=== PATIENT | female | born 1980 | race African-American/Black ===

== ENCOUNTER 2019-04-15 12:35 | Inpatient (IN) | payer SELFPAY ==
[2019-04-15] VITALS (7 sets, daily range): BP systolic 132–231; BP diastolic 95–143
[~2019-04-15] VITALS: Ht 167.6 cm; Wt 138.8 kg
--- NOTE | 2019-04-15 14:36 | PHYS DOC ---
Past Medical History Past Medical History: Hypertension Additional Past Medical Histor: ADELAIDA (ANUJA CASON APRN) Past Surgical History: No Surgical History (ANUJA CASON APRN) Alcohol Use: None Drug Use: None (ANUJA CASON APRN) Attending Signature I have participated in the care of this patient and I have reviewed and agree with all pertinent clinical information above including history, exam, and recommendations. (MAYANK BOWMAN MD) Adult General Chief Complaint Chief Complaint: HEADACHE HPI HPI Patient is a 39 year old female who presents with headache and has not taken any of her blood pressure medications last 8 months. Patient states she usually gets her medications from soap help. Patient states her vision slightly blurred and slightly spotty. Patient states she is short of air but no chest pain. Patient has 1+ lower extremity edema and states that it has increased. Patient's blood pressure upon arrival to 265/141. 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 Patient states medications that she usually takes lisinopril, clonidine, amlodipine, Doxacin, fluoxetine. Rates her headache in 9 out of 10. (ANUJA CASON APRN) Review of Systems Review of Systems Eyes: Denies change in visual acuity, redness, or eye pain. Blurred vision, spotty [] Neurologic: headache, denies focal weakness or sensory changes [] All other systems were reviewed and found to be within normal limits, except as documented in this note. (ANUJA CASON APRN) Current Medications Current Medications Current Medications Medications (Trade) Dose Ordered Sig/Tristan Start Time Stop Time Status Last Admin Dose Admin Clonidine HCl (Catapres) 0.2 mg 1X ONCE 04/15/19 16:00 04/15/19 16:01 DC 04/15/19 15:54 0.2 MG Fentanyl Citrate (Fentanyl 2ml Vial) 50 mcg 1X ONCE 04/15/19 14:45 04/15/19 15:03 DC Furosemide (Lasix) 40 mg DAILY 04/15/19 16:18 04/16/19 11:23 DC 04/16/19 08:55 40 MG Hydralazine HCl (Apresoline Inj) 10 mg 1X ONCE 04/15/19 15:00 04/15/19 15:03 DC 04/15/19 15:00 10 MG (MAYANK BOWMAN MD) Allergies Allergies Allergies Coded Allergies Type Severity Reaction Last Updated Verified No Known Drug Allergies 04/15/19 No (MAYANK BOWMAN MD) Physical Exam Physical Exam Constitutional: Well developed, well nourished, no acute distress, non-toxic appearance. [] HENT: Normocephalic, atraumatic, bilateral external ears normal, oropharynx moist, no oral exudates, nose normal. [] Eyes: PERRLA, EOMI, conjunctiva normal, no discharge. [] Neck: Normal range of motion, no tenderness, supple, no stridor. [] Cardiovascular:Heart rate regular rhythm, no murmur [] Lungs & Thorax: Bilateral breath sounds clear to auscultation [] Skin: Warm, dry, no erythema, no rash. [] Extremities: No tenderness, no cyanosis, no clubbing, ROM intact, 1+ lower extremity edema. [] Neurologic: Alert and oriented X 3, normal motor function, normal sensory function, no focal deficits noted. [] Psychologic: Affect normal, judgement normal, mood normal. [] (ANUJA CASON APRN) Current Patient Data Vital Signs Vital Signs Date Time Temp Pulse Resp B/P (MAP) Pulse Ox O2 Delivery O2 Flow Rate FiO2 04/15/19 15:54 107 257/120 04/15/19 15:30 97 04/15/19 13:45 97.9 20 Room Air 97.9 (MAYANK BOWMAN MD) Lab Values Laboratory Tests Test 04/15/19 14:50 04/15/19 15:40 04/15/19 15:42 White Blood Count 13.5 x10^3/uL (4.0-11.0) H Red Blood Count 5.55 x10^6/uL (3.50-5.40) H Hemoglobin 13.9 g/dL (12.0-15.5) Hematocrit 42.2 % (36.0-47.0) Mean Corpuscular Volume 76 fL (79-100) L Mean Corpuscular Hemoglobin 25 pg (25-35) Mean Corpuscular Hemoglobin Concent 33 g/dL (31-37) Red Cell Distribution Width 18.0 % (11.5-14.5) H Platelet Count 363 x10^3/uL (140-400) Neutrophils (%) (Auto) 65 % (31-73) Lymphocytes (%) (Auto) 22 % (24-48) L Monocytes (%) (Auto) 6 % (0-9) Eosinophils (%) (Auto) 7 % (0-3) H Basophils (%) (Auto) 1 % (0-3) Neutrophils # (Auto) 8.7 x10^3/uL (1.8-7.7) H Lymphocytes # (Auto) 2.9 x10^3/uL (1.0-4.8) Monocytes # (Auto) 0.8 x10^3/uL (0.0-1.1) Eosinophils # (Auto) 0.9 x10^3/uL (0.0-0.7) H Basophils # (Auto) 0.2 x10^3/uL (0.0-0.2) Sodium Level 143 mmol/L (136-145) Potassium Level 3.9 mmol/L (3.5-5.1) Chloride Level 104 mmol/L (98-107) Carbon Dioxide Level 26 mmol/L (21-32) Anion Gap 13 (6-14) Blood Urea Nitrogen 23 mg/dL (7-20) H Creatinine 1.5 mg/dL (0.6-1.0) H Estimated GFR (Cockcroft-Gault) 46.5 BUN/Creatinine Ratio 15 (6-20) Glucose Level 81 mg/dL (70-99) Calcium Level 9.8 mg/dL (8.5-10.1) Total Bilirubin 0.5 mg/dL (0.2-1.0) Aspartate Amino Transferase (AST) 29 U/L (15-37) Alanine Aminotransferase (ALT) 49 U/L (14-59) Alkaline Phosphatase 129 U/L (46-116) H Troponin I Quantitative 0.076 ng/mL (0.000-0.055) JS-Hcr-S-Type Natriuretic Peptide 4219 pg/mL (0-124) H Total Protein 8.2 g/dL (6.4-8.2) Albumin 4.1 g/dL (3.4-5.0) Albumin/Globulin Ratio 1.0 (1.0-1.7) Urine Collection Type Unknown Urine Color Yellow Urine Clarity Clear Urine pH 5.0 Urine Specific [place] 1.015 Urine Protein 30 mg/dL (NEG-TRACE) Urine Glucose (UA) Negative mg/dL (NEG) Urine Ketones (Stick) Negative mg/dL (NEG) Urine Blood Negative (NEG) Urine Nitrite Negative (NEG) Urine Bilirubin Negative (NEG) Urine Urobilinogen Dipstick 0.2 mg/dL (0.2 mg/dL) Urine Leukocyte Esterase Negative (NEG) Urine RBC 0 /HPF (0-2) Urine WBC Occ /HPF (0-4) Urine Squamous Epithelial Cells Few /LPF Urine Bacteria Moderate /HPF (0-FEW) Urine Opiates Screen Neg (NEG) Urine Methadone Screen Neg (NEG) Urine Barbiturates Neg (NEG) Urine Phencyclidine Screen Neg (NEG) Urine Amphetamine/Methamphetamine Neg (NEG) Urine Benzodiazepines Screen Neg (NEG) Urine Cocaine Screen Neg (NEG) Urine Cannabinoids Screen Pos (NEG) Urine Ethyl Alcohol Neg (NEG) POC Urine HCG, Qualitative Hcg negative (Negative) Laboratory Tests 04/15/19 14:50 Laboratory Tests 04/15/19 14:50 (MAYANK BOWMAN MD) Lab Values Laboratory Tests Test 04/15/19 14:50 04/15/19 15:40 04/15/19 15:42 White Blood Count 13.5 x10^3/uL (4.0-11.0) H Red Blood Count 5.55 x10^6/uL (3.50-5.40) H Hemoglobin 13.9 g/dL (12.0-15.5) Hematocrit 42.2 % (36.0-47.0) Mean Corpuscular Volume 76 fL (79-100) L Mean Corpuscular Hemoglobin 25 pg (25-35) Mean Corpuscular Hemoglobin Concent 33 g/dL (31-37) Red Cell Distribution Width 18.0 % (11.5-14.5) H Platelet Count 363 x10^3/uL (140-400) Neutrophils (%) (Auto) 65 % (31-73) Lymphocytes (%) (Auto) 22 % (24-48) L Monocytes (%) (Auto) 6 % (0-9) Eosinophils (%) (Auto) 7 % (0-3) H Basophils (%) (Auto) 1 % (0-3) Neutrophils # (Auto) 8.7 x10^3/uL (1.8-7.7) H Lymphocytes # (Auto) 2.9 x10^3/uL (1.0-4.8) Monocytes # (Auto) 0.8 x10^3/uL (0.0-1.1) Eosinophils # (Auto) 0.9 x10^3/uL (0.0-0.7) H Basophils # (Auto) 0.2 x10^3/uL (0.0-0.2) Sodium Level 143 mmol/L (136-145) Potassium Level 3.9 mmol/L (3.5-5.1) Chloride Level 104 mmol/L (98-107) Carbon Dioxide Level 26 mmol/L (21-32) Anion Gap 13 (6-14) Blood Urea Nitrogen 23 mg/dL (7-20) H Creatinine 1.5 mg/dL (0.6-1.0) H Estimated GFR (Cockcroft-Gault) 46.5 BUN/Creatinine Ratio 15 (6-20) Glucose Level 81 mg/dL (70-99) Calcium Level 9.8 mg/dL (8.5-10.1) Total Bilirubin 0.5 mg/dL (0.2-1.0) Aspartate Amino Transferase (AST) 29 U/L (15-37) Alanine Aminotransferase (ALT) 49 U/L (14-59) Alkaline Phosphatase 129 U/L (46-116) H Troponin I Quantitative 0.076 ng/mL (0.000-0.055) VC-Rsv-D-Type Natriuretic Peptide 4219 pg/mL (0-124) H Total Protein 8.2 g/dL (6.4-8.2) Albumin 4.1 g/dL (3.4-5.0) Albumin/Globulin Ratio 1.0 (1.0-1.7) Urine Collection Type Unknown Urine Color Yellow Urine Clarity Clear Urine pH 5.0 Urine Specific [place] 1.015 Urine Protein 30 mg/dL (NEG-TRACE) Urine Glucose (UA) Negative mg/dL (NEG) Urine Ketones (Stick) Negative mg/dL (NEG) Urine Blood Negative (NEG) Urine Nitrite Negative (NEG) Urine Bilirubin Negative (NEG) Urine Urobilinogen Dipstick 0.2 mg/dL (0.2 mg/dL) Urine Leukocyte Esterase Negative (NEG) Urine RBC 0 /HPF (0-2) Urine WBC Occ /HPF (0-4) Urine Squamous Epithelial Cells Few /LPF Urine Bacteria Moderate /HPF (0-FEW) Urine Opiates Screen Neg (NEG) Urine Methadone Screen Neg (NEG) Urine Barbiturates Neg (NEG) Urine Phencyclidine Screen Neg (NEG) Urine Amphetamine/Methamphetamine Neg (NEG) Urine Benzodiazepines Screen Neg (NEG) Urine Cocaine Screen Neg (NEG) Urine Cannabinoids Screen Pos (NEG) Urine Ethyl Alcohol Neg (NEG) POC Urine HCG, Qualitative Hcg negative (Negative) Laboratory Tests 04/15/19 14:50 Laboratory Tests 04/15/19 14:50 (ANUJA CASON APRN) EKG EKG Sinus Tachycardia and no STEMI[] Interpretation Time: [address] Bowman (ANUJA CASON APRN) Radiology/Procedures Radiology/Procedures [] (ANUJA CASON APRN) Impressions: [facility] [address] [place] [address] IMAGING REPORT Signed PATIENT: FREDDIE THACKER ACCOUNT: [id number] : 1980 LOCATION: ER AGE: 39 SEX: F EXAM STATUS: REG ER ORD. PHYSICIAN: ANUJA CASON APRN REASON: headache PROCEDURE: CT HEAD WO CONTRAST Examination: CT HEAD WO CONTRAST History: Headache Comparison/Correlation: 01/12/2013 CT head without contrast Findings: Axial images of the head were obtained without contrast. Ventricles are normal size. No intracranial hemorrhage, midline shift, or mass effect. Mild mucosal thickening of the ethmoid air cells is noted. Bates-white matter differentiation is adequate. Bony structures are unremarkable. Impression: No suspicious process. PQRS Compliance Statement: One or more of the following individualized dose reduction techniques were utilized for this examination: 1. Automated exposure control 2. Adjustment of the mA and/or kV according to patient size 3. Use of iterative reconstruction technique Electronically signed by: Carlos Sullivan MD (04/15/2019 4:18 PM) [facility] DICTATED and SIGNED BY: CARLOS SULLIVAN MD DATE: 04/15/19 1619 [facility] [address] [place] [id number] IMAGING REPORT Signed PATIENT: FREDDIE THACKER ACCOUNT: [id number] : 1980 LOCATION: ER AGE: 39 SEX: F EXAM STATUS: REG ER ORD. PHYSICIAN: ANUJA CASON APRN REASON: soa PROCEDURE: CHEST PA & LATERAL CHEST PA LATERAL History: Shortness of breath Comparison: None. Findings: The cardiomediastinal silhouette is normal. Pulmonary vasculature is normal. The lungs are clear. No pleural effusion or pneumothorax is seen. There is no acute bone abnormality. IMPRESSION: No acute cardiopulmonary process. Electronically signed by: Carlos Sullivan MD (04/15/2019 4:21 PM) [facility] DICTATED and SIGNED BY: CARLOS SULLIVAN MD DATE: 04/15/19 1621 (ANUJA CASON APRN) Course & Med Decision Making Course & Med Decision Making 1+ were extremity edema. Alert and oriented. Speaks in full clear sentences. Ambulatory with a steady gait. Denies dizziness, abdominal pain, nausea, vomiting, diarrhea, fever, chest pain, numbness or tingling. Lungs are clear to auscultation all lobes. Troponin elevated at 0.076. After 10mg was given of hydralazine, recheck blood pressure is 257/120 and heart rate 107. Patient is now given Clonidine 0.2mg. Dr Bowman is aware of this patient. Dr Bowman read the chest xray as mild pulmonary edema. BNP is 4219, BUN is 23 creatinine is 1.5. I've spoken to Dr. Fagan patient is admitted for hypertension and elevated troponin. I'll consult cardiology. Patient Is given Lasix 40 mg IV. Patient blood pressure remains elevated in the 220's. Dr Bowman aware. Labetalol 20mg IV is given. (ANUJA CASON APRN) Dragon Disclaimer Dragon Disclaimer This electronic medical record was generated, in whole or in part, using a voice recognition dictation system. (ANUJA CASON APRN) Departure Departure Impression: Primary Impression: Hypertension Additional Impression: Elevated troponin Disposition: ADMITTED INPATIENT Admitting Physician: PHILIP (ANUJA CASON APRN) Condition: STABLE Referrals: NO PCP (PCP) Problem Qualifiers Primary Impression: Hypertension Hypertension type: unspecified Qualified Codes: I10 - Essential (primary) hypertension ANUJA CASON APRN Apr 15, 2019 14:36 MAYANK BOWMAN MD Apr 17, 2019 18:18
[2019-04-15] MEDS ORDERED: fentaNYL PF VIAL 100 MCG/2 ML VIAL IVP ONE (14:45)
[2019-04-15] MEDS ORDERED: hydrALAZINE 20 MG/ML VIAL. IVP ONE (15:00)
[2019-04-15 15:01] LABS: BASO # 0.2 x10^3/uL (0.0-0.2); BASO % 1 % (0-3); EOS # 0.9 x10^3/uL (0.0-0.7); EOS % 7 % (0-3); HEMATOCRIT 42.2 % (36.0-47.0); HEMOGLOBIN 13.9 g/dL (12.0-15.5); LYMPH # 2.9 x10^3/uL (1.0-4.8); LYMPH % 22 % (24-48); MEAN CORPUSCULAR HEMOGLOBIN 25 pg (25-35); MEAN CORPUSCULAR HGB CONC 33 g/dL (31-37); MEAN CORPUSCULAR VOLUME 76 fL (79-100); MONO # 0.8 x10^3/uL (0.0-1.1); MONO % 6 % (0-9); NEUT # 8.7 x10^3/uL (1.8-7.7); NEUT % 65 % (31-73); PLATELET COUNT 363 x10^3/uL (140-400); RED BLOOD COUNT 5.55 x10^6/uL (3.50-5.40); WHITE BLOOD COUNT 13.5 x10^3/uL (4.0-11.0)
[2019-04-15 15:13] LABS: CALCIUM 9.8 mg/dL (8.5-10.1); CREATININE 1.5 mg/dL (0.6-1.0); GFR 46.5; POTASSIUM 3.9 mmol/L (3.5-5.1)
[2019-04-15 15:19] LABS: ALBUMIN 4.1 g/dL (3.4-5.0); TOTAL BILIRUBIN 0.5 mg/dL (0.2-1.0); TOTAL PROTEIN 8.2 g/dL (6.4-8.2)
[2019-04-15 15:50] LABS: BILIRUBIN,URINE NEGATIVE (NEG); CLARITY,URINE CLEAR; COLOR,URINE YELLOW; NITRITE,URINE NEGATIVE (NEG); PROTEIN,URINE 30 mg/dL (NEG-TRACE); UROBILINOGEN,URINE 0.2 mg/dL (0.2 mg/dL)
[2019-04-15 15:55] LABS: BACTERIA,URINE MODERATE /HPF (0-FEW); BARBITURATES NEG (NEG); BENZODIAZEPINES NEG (NEG); CANNABINOIDS POS (NEG); COCAINE NEG (NEG); METHADONE NEG (NEG); OPIATES NEG (NEG); PHENCYCLIDINE NEG (NEG); RBC,URINE 0 /HPF (0-2); SQUAMOUS EPITHELIAL CELL,UR FEW /LPF
[2019-04-15 15:56] LABS: WBC,URINE OCC /HPF (0-4)
[2019-04-15] MEDS ORDERED: cloNIDine HCL 0.1 MG TABLET PO ONE (16:00)
[2019-04-15 16:02] LABS: AMPHETAMINE/METHAMPHETAMINE NEG (NEG)
[2019-04-15] MEDS ORDERED: fentaNYL PF VIAL 100 MCG/2 ML VIAL IV PRN (16:30)
[2019-04-15] MEDS ORDERED: ACETAMINOPHEN 325 MG TABLET. PO PRN (16:30)
[2019-04-15] MEDS ORDERED: ONDANSETRON PF 4 MG/2 ML VIAL. IV PRN (16:30)
--- NOTE | 2019-04-15 16:42 | RAD ---
CHEST PA LATERAL History: Shortness of breath Comparison: None. Findings: The cardiomediastinal silhouette is normal. Pulmonary vasculature is normal. The lungs are clear. No pleural effusion or pneumothorax is seen. There is no acute bone abnormality. IMPRESSION: No acute cardiopulmonary process. Electronically signed by: Carlos Pendleton MD (04/15/2019 4:21 PM) [facility]
--- NOTE | 2019-04-15 16:42 | RAD ---
Examination: CT HEAD WO CONTRAST History: Headache Comparison/Correlation: 01/12/2013 CT head without contrast Findings: Axial images of the head were obtained without contrast. Ventricles are normal size. No intracranial hemorrhage, midline shift, or mass effect. Mild mucosal thickening of the ethmoid air cells is noted. Bates-white matter differentiation is adequate. Bony structures are unremarkable. Impression: No suspicious process. PQRS Compliance Statement: One or more of the following individualized dose reduction techniques were utilized for this examination: 1. Automated exposure control 2. Adjustment of the mA and/or kV according to patient size 3. Use of iterative reconstruction technique Electronically signed by: Carlos Pendleton MD (04/15/2019 4:18 PM) [facility]
[2019-04-15] MEDS ORDERED: LABETALOL 20 MG/4 ML DISP.SYRIN. IVP ONE (17:30)
[2019-04-15] MEDS: FUROSEMIDE 40 MG/4 ML VIAL. IVP SCH (17:45)
--- NOTE | 2019-04-15 20:04 | HP ---
ADMIT DATE: 04/15/2019 CHIEF COMPLAINT: Headache. HISTORY OF PRESENT ILLNESS: The patient is a pleasant middle-aged female, who presented with a headache. She has not been taking her blood pressure meds for 8 months. Now, her pressure is 240/100. Chest x-ray is showing vascular congestion. Her troponin is bumped to 0.076. Her creatinine has bumped to 1.5. BNP is high at 4219. I discussed the case with ER physician. The patient is going to the ICU on a Cardene drip. PAST MEDICAL HISTORY: Noncompliance, hypertension and Cerda's palsy. ALLERGIES: None. FAMILY HISTORY: Hypertension. SOCIAL HISTORY: She does not drink, smoke or take drugs. MEDICATIONS: Reviewed, please refer to the MRAD. REVIEW OF SYSTEMS: GENERAL: No history of weight change, weakness or fevers. SKIN: No bruising, hair changes or rashes. EYES: No blurred, double or loss of vision. NOSE AND THROAT: No history of nosebleeds, hoarseness or sore throat. HEART: No history of palpitations, chest pain or shortness of breath on exertion. LUNGS: Denies cough, hemoptysis, wheezing or shortness of breath. GASTROINTESTINAL: Denies changes in appetite, nausea, vomiting, diarrhea or constipation. GENITOURINARY: No history of frequency, urgency, hesitancy or nocturia. NEUROLOGIC: Denies history of numbness, tingling, tremor or weakness. She complains of headache. PSYCHIATRIC: No history of panic, anxiety or depression. ENDOCRINE: No history of heat or cold intolerance, polyuria or polydipsia. EXTREMITIES: Denies muscle weakness, joint pain, pain on walking or stiffness. PHYSICAL EXAMINATION: VITALS: Within normal limits and are stable. Blood pressure 240/100. GENERAL: No apparent distress. Alert and oriented. HEENT: Head is normocephalic, atraumatic, pupils were equally round and reactive to light and accommodation. NECK: Supple, no JVD, no thyromegaly was noted. LUNGS: Clear to auscultation in all lung david without rhonchi or wheezing. HEART: RRR, S1, S2 present. Peripheral pulses intact, no obvious murmurs were noted. ABDOMEN: Soft, nontender. Positive bowel sounds no organomegaly, normal bowel sounds. EXTREMITIES: Without any cyanosis, clubbing, or edema. Pedal pulses intact, Homans sign is negative. NEUROLOGIC: Normal speech, normal tone. A & O x3, moves all extremities, no obvious focal deficits. PSYCHIATRIC: Normal affect, normal mood. Stable. SKIN: No ulcerations or rashes, good skin turgor, no jaundice. VASCULAR: Good capillary refill, neurovascular bundle appears to be intact. LABORATORY DATA: White count 13. Creatinine is 1.5. BNP 4219. ASSESSMENT AND PLAN: Hypertensive emergency with acute on chronic systolic and diastolic heart failure, elevated troponin and acute renal failure. The patient is being admitted. We will give her a Cardene drip. Consult Cardiology. Intensive Care Unit monitoring. Deep venous thrombosis prophylaxis. Home meds. PROGNOSIS: Guarded. CAROLE FONTANA DO DR: MODESTO/keaton JOB#: [id number] / [id number]
[2019-04-15] MEDS ORDERED: LISI-130 PO (20:41)
[2019-04-15] MEDS ORDERED: AMLO10TA8 PO (20:41)
[2019-04-15] MEDS ORDERED: CLON0.3T PO (20:41)
[2019-04-15] MEDS ORDERED: FLUO40CA2 PO (20:41)
[2019-04-15] MEDS ORDERED: DOXA2TAB2 PO (20:41)
--- NOTE | 2019-04-15 21:00 | NUR ---
THIS PATIENT IS BEING TRANSFERRED TO ICU ROOM 104 FROM THE ED. UPON ARRIVAL PATIENT TO ICU PATIENT ARRIVED VIA WHEELCHAIR. NO FLUIDS INFUSING, BUT CARDENE LEFT AT BEDSIDE. AWAKE AND ANSWERS QUESTIONS APPROPRIATELY. HEADACHE BUT DENIES CHEST PAIN OR SOA. WILL CONTINUE TO MONITOR.
[2019-04-16] VITALS (16 sets, daily range): BP systolic 119–173; BP diastolic 62–105
[2019-04-16] MEDS: LISINOPRIL 20 MG TABLET PO SCH ×3 (00:12→21:23)
[2019-04-16] MEDS: amLODIPine BESYLATE 10 MG TABLET PO SCH ×2 (00:13→21:22)
--- NOTE | 2019-04-16 05:46 | EKG ---
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
--- NOTE | 2019-04-16 05:52 | EKG ---
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
--- NOTE | 2019-04-16 07:43 | EKG ---
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
[2019-04-16] MEDS: DOXAZOSIN MESYLATE 1 MG TABLET. PO SCH (08:53)
[2019-04-16] MEDS: cloNIDine HCL 0.3 MG TABLET PO SCH ×4 (08:53→21:23)
[2019-04-16] MEDS: FLUoxetine HCL 20 MG CAPSULE PO SCH (08:54)
[2019-04-16] MEDS: FUROSEMIDE 40 MG/4 ML VIAL. IVP SCH (08:55)
[2019-04-16 10:04] LABS: BASO # 0.1 x10^3/uL (0.0-0.2); BASO % 1 % (0-3); EOS # 0.7 x10^3/uL (0.0-0.7); EOS % 6 % (0-3); HEMATOCRIT 38.1 % (36.0-47.0); HEMOGLOBIN 12.5 g/dL (12.0-15.5); LYMPH # 2.4 x10^3/uL (1.0-4.8); LYMPH % 22 % (24-48); MEAN CORPUSCULAR HEMOGLOBIN 25 pg (25-35); MEAN CORPUSCULAR HGB CONC 33 g/dL (31-37); MEAN CORPUSCULAR VOLUME 76 fL (79-100); MONO # 0.7 x10^3/uL (0.0-1.1); MONO % 6 % (0-9); NEUT # 7.4 x10^3/uL (1.8-7.7); NEUT % 66 % (31-73); PLATELET COUNT 342 x10^3/uL (140-400); RED BLOOD COUNT 5.01 x10^6/uL (3.50-5.40); RED CELL DISTRIBUTION WIDTH 17.4 % (11.5-14.5); WHITE BLOOD COUNT 11.3 x10^3/uL (4.0-11.0)
--- NOTE | 2019-04-16 10:15 | NUR ---
SS following for discharge planning. SS reviewed pt chart. Pt is self pay pt. [facility] following for self pay status. Pt is from home and is currently on room air. SS will continue to follow for discharge planning.
--- NOTE | 2019-04-16 10:56 | PDOC2 ---
SARIAHARLEEN SAHA GABRIELLA 04/16/19 1056: CARDIAC CONSULT DATE OF CONSULT Date of Consult DATE: 04/16/19 TIME: 10:52 REASON FOR CONSULT Reason for Consult: Hypertension REFERRING PHYSICIAN Referring Physician: Karin Acosta APRN SOURCE Source: Chart review, Patient HISTORY OF PRESENT ILLNESS HISTORY OF PRESENT ILLNESS This is a 39 yo female who presented secondary to headache and blurred vision. Headache has been present for the last 2 weeks. Has has some mild nausea, but no vomiting. Also noted with ESPINAL. No chest pain, dizziness, diaphoresis, or LE edema. Has notice some blurred vision for the last couple of days. Blood pressure was significantly elevated upon arrival. Has not taken any blood pressure medications in about 8 months. Unfortunately, lost insurance coverage and has not been able to afford medications. PAST MEDICAL HISTORY Cardiovascular: HTN Psych: Anxiety, Depression Renal/: Chronic renal insuff PAST SURGICAL HISTORY Past Surgical History: No pertinent history FAMILY HISTORY Family History: Diabetes, Hypertension SOCIAL HISTORY Smoke: No ALCOHOL: none Drugs: Marijuana Lives: with Family CURRENT MEDICATIONS CURRENT MEDICATIONS Current Medications Medications (Trade) Dose Ordered Sig/Tristan Route PRN Reason Start Time Stop Time Status Last Admin Dose Admin Hydralazine HCl (Apresoline Inj) 10 mg 1X ONCE IVP 04/15/19 15:00 04/15/19 15:03 DC 04/15/19 15:00 Clonidine HCl (Catapres) 0.2 mg 1X ONCE PO 04/15/19 16:00 04/15/19 16:01 DC 04/15/19 15:54 Furosemide (Lasix) 40 mg DAILY IVP 04/15/19 16:18 04/16/19 08:55 Ondansetron HCl (Zofran) 4 mg PRN Q8HRS PRN IV NAUSEA/VOMITING 04/15/19 16:30 04/16/19 16:29 04/15/19 22:42 Fentanyl Citrate (Fentanyl 2ml Vial) 50 mcg PRN Q1HR PRN IV PAIN 04/15/19 16:30 04/16/19 16:29 04/15/19 22:42 Labetalol HCl (Normodyne Iv Push) 20 mg 1X ONCE IVP 04/15/19 17:30 04/15/19 17:31 DC 04/15/19 17:50 Nicardipine HCl 50 mg/Sodium Chloride 250 ml @ 25 mls/hr CONT PRN IV SEE I/O RECORD 04/15/19 19:00 04/16/19 00:11 Amlodipine Besylate (Norvasc) 10 mg QHS PO 04/16/19 00:00 04/16/19 00:13 Clonidine HCl (Catapres) 0.3 mg TID PO 04/16/19 00:00 04/16/19 08:53 Lisinopril (Prinivil) 40 mg BID PO 04/16/19 00:00 04/16/19 08:53 Doxazosin Mesylate (Cardura) 2 mg DAILY PO 04/16/19 09:00 04/16/19 08:53 Fluoxetine HCl (PROzac) 40 mg DAILYWBKFT PO 04/16/19 08:00 04/16/19 08:54 ALLERGIES ALLERGIES: Coded Allergies: No Known Drug Allergies (Unverified , 04/15/19) ROS Review of System 14 point ROS conducted with pertinent positives noted above in HPI PHYSICAL EXAM General: Alert, Oriented X3, Cooperative, No acute distress HEENT: Atraumatic, Mucous membr. moist/pink Lungs: Clear to auscultation, Other (diminished ) Heart: Regular rate, Normal S1, Normal S2 Abdomen: Soft, Other (obese ) Extremities: No edema, Normal pulses Skin: No significant lesion Neuro: Normal speech, Sensation intact Psych/Mental Status: Mental status NL, Mood NL MUSCULOSKELETAL: No deformity VITALS/I&O VITALS/I&O: Vital Signs Date Time Temp Pulse Resp B/P (MAP) Pulse Ox O2 Delivery O2 Flow Rate FiO2 04/16/19 10:00 93 14 123/69 (87) 100 Room Air 04/16/19 08:00 98.2 98.2 04/16/19 06:00 2.0 I & O 04/15/19 04/15/19 04/16/19 15:00 23:00 07:00 Intake Total 1390.75 ml Output Total 1300 ml 500 ml Balance -1300 ml 890.75 ml LABS Lab: Laboratory Tests Test 04/15/19 14:50 04/15/19 15:40 04/15/19 15:42 04/15/19 19:40 White Blood Count 13.5 x10^3/uL (4.0-11.0) H Red Blood Count 5.55 x10^6/uL (3.50-5.40) H Hemoglobin 13.9 g/dL (12.0-15.5) Hematocrit 42.2 % (36.0-47.0) Mean Corpuscular Volume 76 fL (79-100) L Mean Corpuscular Hemoglobin 25 pg (25-35) Mean Corpuscular Hemoglobin Concent 33 g/dL (31-37) Red Cell Distribution Width 18.0 % (11.5-14.5) H Platelet Count 363 x10^3/uL (140-400) Neutrophils (%) (Auto) 65 % (31-73) Lymphocytes (%) (Auto) 22 % (24-48) L Monocytes (%) (Auto) 6 % (0-9) Eosinophils (%) (Auto) 7 % (0-3) H Basophils (%) (Auto) 1 % (0-3) Neutrophils # (Auto) 8.7 x10^3/uL (1.8-7.7) H Lymphocytes # (Auto) 2.9 x10^3/uL (1.0-4.8) Monocytes # (Auto) 0.8 x10^3/uL (0.0-1.1) Eosinophils # (Auto) 0.9 x10^3/uL (0.0-0.7) H Basophils # (Auto) 0.2 x10^3/uL (0.0-0.2) Sodium Level 143 mmol/L (136-145) Potassium Level 3.9 mmol/L (3.5-5.1) Chloride Level 104 mmol/L (98-107) Carbon Dioxide Level 26 mmol/L (21-32) Anion Gap 13 (6-14) Blood Urea Nitrogen 23 mg/dL (7-20) H Creatinine 1.5 mg/dL (0.6-1.0) H Estimated GFR (Cockcroft-Gault) 46.5 BUN/Creatinine Ratio 15 (6-20) Glucose Level 81 mg/dL (70-99) Calcium Level 9.8 mg/dL (8.5-10.1) Total Bilirubin 0.5 mg/dL (0.2-1.0) Aspartate Amino Transferase (AST) 29 U/L (15-37) Alanine Aminotransferase (ALT) 49 U/L (14-59) Alkaline Phosphatase 129 U/L (46-116) H Troponin I Quantitative 0.076 ng/mL (0.000-0.055) 0.068 ng/mL (0.000-0.055) GY-Qhf-[id number]-Type Natriuretic Peptide 4219 pg/mL (0-124) H Total Protein 8.2 g/dL (6.4-8.2) Albumin 4.1 g/dL (3.4-5.0) Albumin/Globulin Ratio 1.0 (1.0-1.7) Urine Collection Type Unknown Urine Color Yellow Urine Clarity Clear Urine pH 5.0 Urine Specific [place] 1.015 Urine Protein 30 mg/dL (NEG-TRACE) Urine Glucose (UA) Negative mg/dL (NEG) Urine Ketones (Stick) Negative mg/dL (NEG) Urine Blood Negative (NEG) Urine Nitrite Negative (NEG) Urine Bilirubin Negative (NEG) Urine Urobilinogen Dipstick 0.2 mg/dL (0.2 mg/dL) Urine Leukocyte Esterase Negative (NEG) Urine RBC 0 /HPF (0-2) Urine WBC Occ /HPF (0-4) Urine Squamous Epithelial Cells Few /LPF Urine Bacteria Moderate /HPF (0-FEW) Urine Opiates Screen Neg (NEG) Urine Methadone Screen Neg (NEG) Urine Barbiturates Neg (NEG) Urine Phencyclidine Screen Neg (NEG) Urine Amphetamine/Methamphetamine Neg (NEG) Urine Benzodiazepines Screen Neg (NEG) Urine Cocaine Screen Neg (NEG) Urine Cannabinoids Screen Pos (NEG) Urine Ethyl Alcohol Neg (NEG) POC Urine HCG, Qualitative Hcg negative (Negative) Test 04/15/19 23:50 04/16/19 09:25 Lactic Acid Level 1.5 mmol/L (0.4-2.0) White Blood Count 11.3 x10^3/uL (4.0-11.0) H Red Blood Count 5.01 x10^6/uL (3.50-5.40) Hemoglobin 12.5 g/dL (12.0-15.5) Hematocrit 38.1 % (36.0-47.0) Mean Corpuscular Volume 76 fL (79-100) L Mean Corpuscular Hemoglobin 25 pg (25-35) Mean Corpuscular Hemoglobin Concent 33 g/dL (31-37) Red Cell Distribution Width 17.4 % (11.5-14.5) H Platelet Count 342 x10^3/uL (140-400) Neutrophils (%) (Auto) 66 % (31-73) Lymphocytes (%) (Auto) 22 % (24-48) L Monocytes (%) (Auto) 6 % (0-9) Eosinophils (%) (Auto) 6 % (0-3) H Basophils (%) (Auto) 1 % (0-3) Neutrophils # (Auto) 7.4 x10^3/uL (1.8-7.7) Lymphocytes # (Auto) 2.4 x10^3/uL (1.0-4.8) Monocytes # (Auto) 0.7 x10^3/uL (0.0-1.1) Eosinophils # (Auto) 0.7 x10^3/uL (0.0-0.7) Basophils # (Auto) 0.1 x10^3/uL (0.0-0.2) Laboratory Tests 04/15/19 14:50 04/16/19 09:25 Laboratory Tests 04/15/19 14:50 ASSESSMENT/PLAN ASSESSMENT/PLAN 1. Hypertensive urgency; off Cardene gtt. Oral meds resumed 2. Mild troponin elevation; peak 0.076. Most probably type II, demand ischemia secondary to above. CP free. 3. Mild acute probable diastolic CHF due to above. S/p IV Lasix. Appears compensated. 4. CKD secondary to uncontrolled BP 5. LBBB; no previous EKG for comparison 6. Noncompliance; due to social issues 7. Marijuana use; encouraged cessation Recommendations ASA Echo to assess LV systolic function Monitor BP; therapy titration as warranted; Med's on [employer] $4 list information services vice president consult Discussed/encouraged importance of medical compliance Support care May transfer out of ICU Further pending above. JEANNETTE ISABEL MD 04/17/19 0801: CARDIAC CONSULT ASSESSMENT/PLAN ASSESSMENT/PLAN Pt. seen and examined. Agree with above CONTRACTS DIRECTOR note. late entry for 04/16/2019 ARLEEN ROLLE APRN Apr 16, 2019 10:56 JEANNETTE ISABEL MD Apr 17, 2019 08:01
[2019-04-16 11:04] LABS: CALCIUM 8.7 mg/dL (8.5-10.1); CREATININE 1.4 mg/dL (0.6-1.0); GFR 50.4; POTASSIUM 3.7 mmol/L (3.5-5.1)
--- NOTE | 2019-04-16 12:08 | PDOC ---
[employer] PROGRESS NOTE Chief Complaint Chief Complaint Elevated troponin. Hypertension. History of Present Illness History of Present Illness Patient was seen and examined in ICU. Discussed with patient why it is important that she resume blood pressure medications, with a goal of keeping her systolic blood pressure under 140 mmHg. Gave her instructions to purchase a blood pressure cuff and begin at home blood pressure monitoring. Also, called pharmacy in order to obtain a list of medications on the $4 prescription list. Vitals/I&O Vitals/I&O: Vital Signs Date Time Temp Pulse Resp B/P (MAP) Pulse Ox O2 Delivery O2 Flow Rate FiO2 04/16/19 11:00 100 14 135/69 (91) 100 Room Air 04/16/19 08:00 98.2 98.2 04/16/19 06:00 2.0 I & O 04/15/19 04/15/19 04/16/19 15:00 23:00 07:00 Intake Total 1390.75 ml Output Total 1300 ml 500 ml Balance -1300 ml 890.75 ml Physical Exam General: Alert, Oriented X3, Cooperative, No acute distress Heart: Regular rate, Normal S1, Normal S2 Lungs: Clear Abdomen: Soft, Other (obese ) Extremities: No clubbing, No cyanosis, No edema, Normal pulses Skin: No rashes, No breakdown, No significant lesion Labs Labs: Laboratory Tests Test 04/15/19 14:50 04/15/19 15:40 04/15/19 15:42 04/15/19 19:40 White Blood Count 13.5 x10^3/uL (4.0-11.0) Red Blood Count 5.55 x10^6/uL (3.50-5.40) Hemoglobin 13.9 g/dL (12.0-15.5) Hematocrit 42.2 % (36.0-47.0) Mean Corpuscular Volume 76 fL (79-100) Mean Corpuscular Hemoglobin 25 pg (25-35) Mean Corpuscular Hemoglobin Concent 33 g/dL (31-37) Red Cell Distribution Width 18.0 % (11.5-14.5) Platelet Count 363 x10^3/uL (140-400) Neutrophils (%) (Auto) 65 % (31-73) Lymphocytes (%) (Auto) 22 % (24-48) Monocytes (%) (Auto) 6 % (0-9) Eosinophils (%) (Auto) 7 % (0-3) Basophils (%) (Auto) 1 % (0-3) Neutrophils # (Auto) 8.7 x10^3/uL (1.8-7.7) Lymphocytes # (Auto) 2.9 x10^3/uL (1.0-4.8) Monocytes # (Auto) 0.8 x10^3/uL (0.0-1.1) Eosinophils # (Auto) 0.9 x10^3/uL (0.0-0.7) Basophils # (Auto) 0.2 x10^3/uL (0.0-0.2) Sodium Level 143 mmol/L (136-145) Potassium Level 3.9 mmol/L (3.5-5.1) Chloride Level 104 mmol/L (98-107) Carbon Dioxide Level 26 mmol/L (21-32) Anion Gap 13 (6-14) Blood Urea Nitrogen 23 mg/dL (7-20) Creatinine 1.5 mg/dL (0.6-1.0) Estimated GFR (Cockcroft-Gault) 46.5 BUN/Creatinine Ratio 15 (6-20) Glucose Level 81 mg/dL (70-99) Calcium Level 9.8 mg/dL (8.5-10.1) Total Bilirubin 0.5 mg/dL (0.2-1.0) Aspartate Amino Transf (AST/SGOT) 29 U/L (15-37) Alanine Aminotransferase (ALT/SGPT) 49 U/L (14-59) Alkaline Phosphatase 129 U/L (46-116) Troponin I Quantitative 0.076 ng/mL (0.000-0.055) 0.068 ng/mL (0.000-0.055) PZ-Dxp-K-Type Natriuretic Peptide 4219 pg/mL (0-124) Total Protein 8.2 g/dL (6.4-8.2) Albumin 4.1 g/dL (3.4-5.0) Albumin/Globulin Ratio 1.0 (1.0-1.7) Urine Collection Type Unknown Urine Color Yellow Urine Clarity Clear Urine pH 5.0 Urine Specific [place] 1.015 Urine Protein 30 mg/dL (NEG-TRACE) Urine Glucose (UA) Negative mg/dL (NEG) Urine Ketones (Stick) Negative mg/dL (NEG) Urine Blood Negative (NEG) Urine Nitrite Negative (NEG) Urine Bilirubin Negative (NEG) Urine Urobilinogen Dipstick 0.2 mg/dL (0.2 mg/dL) Urine Leukocyte Esterase Negative (NEG) Urine RBC 0 /HPF (0-2) Urine WBC Occ /HPF (0-4) Urine Squamous Epithelial Cells Few /LPF Urine Bacteria Moderate /HPF (0-FEW) Urine Opiates Screen Neg (NEG) Urine Methadone Screen Neg (NEG) Urine Barbiturates Neg (NEG) Urine Phencyclidine Screen Neg (NEG) Urine Amphetamine/Methamphetamine Neg (NEG) Urine Benzodiazepines Screen Neg (NEG) Urine Cocaine Screen Neg (NEG) Urine Cannabinoids Screen Pos (NEG) Urine Ethyl Alcohol Neg (NEG) Bedside Urine HCG, Qualitative Hcg negative (Negative) Test 04/15/19 23:50 04/16/19 09:25 Lactic Acid Level 1.5 mmol/L (0.4-2.0) White Blood Count 11.3 x10^3/uL (4.0-11.0) Red Blood Count 5.01 x10^6/uL (3.50-5.40) Hemoglobin 12.5 g/dL (12.0-15.5) Hematocrit 38.1 % (36.0-47.0) Mean Corpuscular Volume 76 fL (79-100) Mean Corpuscular Hemoglobin 25 pg (25-35) Mean Corpuscular Hemoglobin Concent 33 g/dL (31-37) Red Cell Distribution Width 17.4 % (11.5-14.5) Platelet Count 342 x10^3/uL (140-400) Neutrophils (%) (Auto) 66 % (31-73) Lymphocytes (%) (Auto) 22 % (24-48) Monocytes (%) (Auto) 6 % (0-9) Eosinophils (%) (Auto) 6 % (0-3) Basophils (%) (Auto) 1 % (0-3) Neutrophils # (Auto) 7.4 x10^3/uL (1.8-7.7) Lymphocytes # (Auto) 2.4 x10^3/uL (1.0-4.8) Monocytes # (Auto) 0.7 x10^3/uL (0.0-1.1) Eosinophils # (Auto) 0.7 x10^3/uL (0.0-0.7) Basophils # (Auto) 0.1 x10^3/uL (0.0-0.2) Sodium Level 142 mmol/L (136-145) Potassium Level 3.7 mmol/L (3.5-5.1) Chloride Level 105 mmol/L (98-107) Carbon Dioxide Level 28 mmol/L (21-32) Anion Gap 9 (6-14) Blood Urea Nitrogen 18 mg/dL (7-20) Creatinine 1.4 mg/dL (0.6-1.0) Estimated GFR (Cockcroft-Gault) 50.4 Glucose Level 145 mg/dL (70-99) Calcium Level 8.7 mg/dL (8.5-10.1) Review of Systems Review of Systems: Patient denies SOB and weakness Assessment and Plan Assessmemt and Plan Problems Medical Problems: (1) Elevated troponin Status: Acute (2) Hypertension Status: Acute Assessment: Hypertension, elevated troponin Patient was seen and examined in ICU. Discussed with patient why it is important that she resume blood pressure medications, with a goal of keeping her systolic blood pressure under 140 mmHg. Gave her instructions to purchase a blood pressure cuff and begin at home blood pressure monitoring. Also, called pharmacy in order to obtain a list of medications on the $4 prescription list. Plan: 1. transfer to ICU 2. trend troponin levels 3. Await further input from cardiology 4. Resume home medications 5. DVT prophylaxis 6. Full code Comment Review of Relevant I have reviewed the following items satinder (where applicable) has been applied. Medications: Current Medications Medications (Trade) Dose Ordered Sig/Tristan Route PRN Reason Start Time Stop Time Status Last Admin Dose Admin Hydralazine HCl (Apresoline Inj) 10 mg 1X ONCE IVP 04/15/19 15:00 04/15/19 15:03 DC 04/15/19 15:00 Clonidine HCl (Catapres) 0.2 mg 1X ONCE PO 04/15/19 16:00 04/15/19 16:01 DC 04/15/19 15:54 Furosemide (Lasix) 40 mg DAILY IVP 04/15/19 16:18 04/16/19 11:23 DC 04/16/19 08:55 Ondansetron HCl (Zofran) 4 mg PRN Q8HRS PRN IV NAUSEA/VOMITING 04/15/19 16:30 04/16/19 16:29 04/15/19 22:42 Fentanyl Citrate (Fentanyl 2ml Vial) 50 mcg PRN Q1HR PRN IV PAIN 04/15/19 16:30 04/16/19 16:29 04/15/19 22:42 Labetalol HCl (Normodyne Iv Push) 20 mg 1X ONCE IVP 04/15/19 17:30 04/15/19 17:31 DC 04/15/19 17:50 Nicardipine HCl 50 mg/Sodium Chloride 250 ml @ 25 mls/hr CONT PRN IV SEE I/O RECORD 04/15/19 19:00 04/16/19 11:23 DC 04/16/19 00:11 Amlodipine Besylate (Norvasc) 10 mg QHS PO 04/16/19 00:00 04/16/19 00:13 Clonidine HCl (Catapres) 0.3 mg TID PO 04/16/19 00:00 04/16/19 08:53 Lisinopril (Prinivil) 40 mg BID PO 04/16/19 00:00 04/16/19 08:53 Doxazosin Mesylate (Cardura) 2 mg DAILY PO 04/16/19 09:00 04/16/19 08:53 Fluoxetine HCl (PROzac) 40 mg DAILYWBKFT PO 04/16/19 08:00 04/16/19 08:54 CAROLE FONTANA III DO Apr 16, 2019 12:08
[2019-04-16] MEDS: ASPIRIN ENTERIC COATED 81 MG TABLET.DR. PO SCH (14:14)
--- NOTE | 2019-04-16 20:30 | NUR ---
Transferred from ICU 104 to room 260. A/O x 4. Pleasant. VSS. Orientated to unit and call light. Verbalized understanding. Resting in bed with call light at hand.
[2019-04-17 03:00] VITALS: BP 144/94
[2019-04-17 07:48] VITALS: BP 159/93
--- NOTE | 2019-04-17 08:41 | CARD ---
MR#: [id number] Date of Study: 04/16/2019 Ordering Physician: ARLEEN ROLLE, Referring Physician: ARLEEN ROLLE, Tech: Luisana Pa [facility] APPROVED REPORT EXAM: Two-dimensional and M-mode echocardiogram with Doppler and color Doppler. Other Information Quality : AverageHR: 84bpm Rhythm : NSR INDICATION Elev Troponin 2D DIMENSIONS RVDd2.8 (2.9-3.5cm)Left Atrium(2D)3.9 (1.6-4.0cm) IVSd2.2 (0.7-1.1cm)Aortic Root(2D)2.2 (2.0-3.7cm) LVDd4.5 (3.9-5.9cm)LVOT Diameter2.2 (1.8-2.4cm) PWd1.6 (0.7-1.1cm)LVDs2.8 (2.5-4.0cm) FS (%) 37.2 %SV60.7 ml LVEF(%)67.3 (>50%) Aortic Valve AoV Peak Jim.147.1cm/sAoV VTI22.6cm AO Peak GR.8.7mmHgLVOT Peak Jim.118.0cm/s AO Mean GR.5mmHgAVA (VMAX)2.96cm2 NILS (VTI)3.00cm2 Mitral Valve MV E Ziyefsts33.7cm/sMV E Peak Gr.5mmHg MV DECEL [id number] A Xpkqqhzs896.0cm/s MV E Mean Gr.2mmHgE/A Ratio0.7 Pulmonary Valve PV Peak Gcblxojb55.0cm/s Pulmonary Vein S1 Njfvlozn92.8cm/sD2 Tdzbpfum53.3cm/s LEFT VENTRICLE The left ventricle is normal size. There is severe concentric left ventricular hypertrophy. The left ventricular systolic function is normal and the ejection fraction is within normal range. The Ejectio n Fraction is 65-70%. There is normal LV segmental wall motion. Transmitral Doppler flow pattern is G rade I-abnormal relaxation pattern. RIGHT VENTRICLE The right ventricle is normal size. There is normal right ventricular wall thickness. The right ventr icular systolic function is normal. ATRIA The left atrium size is normal. The right atrium size is normal. The interatrial septum is intact wit h no evidence for an atrial septal defect or patent foramen ovale as noted on 2-D or Doppler imaging. AORTIC VALVE The aortic valve is normal in structure and function. The aortic valve is trileaflet. Doppler and Col or Flow revealed no significant aortic regurgitation. There is no significant aortic valvular stenosi s. MITRAL VALVE The mitral valve is thickened but opens well. There is no evidence of mitral valve prolapse. There is no mitral valve stenosis. Doppler and Color Flow revealed no mitral valve regurgitation noted. TRICUSPID VALVE The tricuspid valve is normal in structure and function. Doppler and Color Flow revealed no tricuspid valve regurgitation noted. There is no tricuspid valve prolapse or vegetation. There is no tricuspid valve stenosis. PULMONIC VALVE The pulmonic valve is not well visualized. GREAT VESSELS The aortic root is normal in size. The ascending aorta is normal in size. The IVC is normal in size a nd collapses >50% with inspiration. PERICARDIAL EFFUSION There is no evidence of significant pericardial effusion. Critical Notification Critical Value: No <Conclusion> The left ventricular systolic function is normal and the ejection fraction is within normal range. Th e Ejection Fraction is 65-70%. There is severe concentric left ventricular hypertrophy. Cannot rule out hypertrophic cardiomyopathy versus severe hypertrophy due to uncontrolled malignant H TN. Consider MRI on an outpt basis Signed by : Eric Kilpatrick, Electronically Approved : 04/17/2019 08:40:49
[2019-04-17] MEDS: FLUoxetine HCL 20 MG CAPSULE PO SCH (08:45)
[2019-04-17] MEDS: LISINOPRIL 20 MG TABLET PO SCH (08:46)
[2019-04-17] MEDS: cloNIDine HCL 0.3 MG TABLET PO SCH ×2 (08:46→15:32)
[2019-04-17] MEDS: ASPIRIN ENTERIC COATED 81 MG TABLET.DR. PO SCH (08:47)
[2019-04-17] MEDS: DOXAZOSIN MESYLATE 1 MG TABLET. PO SCH (09:45)
--- NOTE | 2019-04-17 10:51 | NUR ---
SS following up with discharge planning. Resources provided for community resources, [facility], [facility], and $4 medication list.
--- NOTE | 2019-04-17 10:57 | PDOC ---
CARDIO Progress Notes Date and Time Date of Service 04/17/2019 Time of Evaluation 1030 Subjective Subjective: No Chest Pain, No shortness of breath, No Palpitations Vitals Vitals Vital Signs Date Time Temp Pulse Resp B/P (MAP) Pulse Ox O2 Delivery O2 Flow Rate FiO2 04/17/19 09:45 91 159/93 04/17/19 07:48 97.3 96 Room Air 97.3 04/17/19 03:00 16 Weight Weight [ ] Input and Output Intake and Output Intake and Output 04/17/19 07:00 Intake Total 889.84 ml Output Total 1450 ml Balance -560.16 ml Intake Oral 840 ml IV Total 49.84 ml Output Urine Total 1450 ml # Voids 1 Physical Exam HEENT: Neck Supple W Full Motion Chest: Symmetric LUNGS: Clear to Auscultation Heart: S1S2, RRR (SR) Abdomen: Soft N/T Extremities: No Calf Tenderness Neurology: alert, oriented, follow commands Assessment Assessment 1. Hypertensive urgency: mildly labile 2. Mild troponin elevation; peak 0.076. Most probably type II, demand ischemia secondary to above. CP free. 3. Mild acute diastolic CHF: due to uncontrolled HTN. compensated 4. CKD secondary to uncontrolled BP 5. LBBB; no previous EKG for comparison 6. Noncompliance; due to social issues 7. Marijuana use; encouraged cessation Recommendations 1. Continue current BP regimen. Will change lisinopril to 40 mg daily and add HCTZ. 2. Would need to titrate down as an outpt and transition to coreg given his severe LVH. Continue norvasc and cardura. 3. ASA 4. Encouraged HBPM 5. Tailor made regimen with [employer] $4 list 6. policy services representative consult for outreach clinic referral 7. Discussed/encouraged importance of medical compliance LOBITO SMITH RANGE TECHNICIAN Apr 17, 2019 10:57
[2019-04-17 11:32] LABS: CHOLESTEROL/HDL RATIO 4.1
[2019-04-17 11:35] VITALS: BP 159/86
[2019-04-17] MEDS ORDERED: hydroCHLOROthiazide 25 MG TABLET PO SCH (12:00)
--- NOTE | 2019-04-17 12:29 | PDOC ---
[employer] PROGRESS NOTE Chief Complaint Chief Complaint Elevated troponin. Hypertension. History of Present Illness History of Present Illness 04/17/2019 Patient was seen and examined. She is in good spirits without acute complaints She reports that she is ready for D/C and expressed understanding in regards to being diligent with outpatient HTN therapy. EF 04/16/2019 was 65-70% 04/16/2019 Patient was seen and examined in ICU. Discussed with patient why it is important that she resume blood pressure medications, with a goal of keeping her systolic blood pressure under 140 mmHg. Gave her instructions to purchase a blood pressure cuff and begin at home blood pressure monitoring. Also, called pharmacy in order to obtain a list of medications on the $4 prescription list. Vitals/I&O Vitals/I&O: Vital Signs Date Time Temp Pulse Resp B/P (MAP) Pulse Ox O2 Delivery O2 Flow Rate FiO2 04/17/19 11:35 97.4 92 159/86 (110) 98 Room Air 97.4 04/17/19 03:00 16 I & O 04/16/19 04/16/19 04/17/19 14:59 22:59 06:59 Intake Total 449.84 ml 200 ml 240 ml Output Total 1050 ml 400 ml Balance -600.16 ml -200 ml 240 ml Physical Exam General: Alert, Oriented X3, Cooperative, No acute distress Heart: Regular rate, Normal S1, Normal S2 Lungs: Clear Abdomen: Soft, Other (obese ) Extremities: No clubbing, No cyanosis, No edema, Normal pulses Skin: No rashes, No breakdown, No significant lesion Review of Systems Review of Systems: Denies N/V/D Denies SOB Denies CP Assessment and Plan Assessmemt and Plan Problems Medical Problems: (1) Elevated troponin Status: Acute (2) Hypertension Status: Acute Elevated troponin. Hypertension. Plan: 1) Patient seems to have returned to baseline. Will D/C Today on outpatient medications of: *Cardura 2mg qd *Catapress 3mg TID *Norvasc 10mg *Lisinopril 40 mg qd *Aspirin 81mg qd *Prozac 40mg QD Comment Review of Relevant I have reviewed the following items satinder (where applicable) has been applied. Medications: Current Medications Medications (Trade) Dose Ordered Sig/Tristan Route PRN Reason Start Time Stop Time Status Last Admin Dose Admin Aspirin (Ecotrin) 81 mg DAILYWBKFT PO 04/16/19 12:30 04/17/19 08:47 Hydrochlorothiazide (Hydrodiuril) 25 mg DAILY PO 04/17/19 12:00 04/17/19 11:40 CAROLE FONTANA III DO Apr 17, 2019 12:29
[2019-04-17 16:00] VITALS: BP 149/99
[2019-04-17] MEDS ORDERED: ASPI-630 PO (17:33)
[2019-04-17] MEDS ORDERED: HYDR-2145 PO (17:34)
--- NOTE | 2019-04-17 17:49 | NUR ---
PATIENT GIVEN DISCHATRGE INSTRUCTIONS ALONG WITH MULTIPLE HANDOUTS ON RESOURCES IN THE COMMUNITY TO ASSIST THE PT WITH HER COMPLIANCE OF HER DAILY MEDICATIONS. ALL SCRIPTS GIVEN AND MOST WERE AVAILABLE ON THE 4.[employer] LIST. GAVE THE PT INFORMATION ON TAKING HER BLOOD PRESSURE AND KEEPING A LOG. ENCOURAGED THE PT TO OBTAIN A BP CUFF FOR HOME AND UNTIL SHE WAS ABLE TO DO THAT SHE SHOULD GO TO [place] OR ANYWHERE THAT SHE CAN TAKE HER BLOOD PRESSURE AT TO MONITOR. GAVE INSTRUCTIONS ON WHEN TO COME BACK TO THE HOSPITAL AND THE IMPORTANCE OF FILLING SCRIPTS, FINDING A PCP AND OR GOING TO THE CLINIC IN THE MEAN TIME. PT GIVEN ALL SCRIPTS AND LOVASTATIN 20 MG 1 TAB PO QHS WAS GIVEN PRIOR TO DISCHARGE. PT WAS UNSURE IF SHE WAS GOING TO FILL THE LOVASTATIN. ALL PAPERS AND BELONGINGS LEFT WITH THE PT AND FAMILY FRIEND AT TIME OF DISCHARGE.
[2019-04-18] MEDS ORDERED: LISINOPRIL 20 MG TABLET PO SCH (09:00)
--- NOTE | 2019-04-18 15:09 | DS ---
DATE OF DISCHARGE: 04/17/2019 ADMISSION DIAGNOSIS: Accelerated hypertension. DISCHARGE DIAGNOSIS: Resolving accelerated hypertension and noncompliance. HOSPITAL COURSE: The patient is a pleasant 39-year-old female who presented with accelerated hypertension. She was admitted. We gave her IV antihypertensives and changed her to p.o. She returned her baseline. We discharged to home with 4 prescriptions for oral antihypertensives. DISPOSITION: Home. ACTIVITY: As tolerated. DIET: Low sodium. MEDICATIONS: Please see MRAD. TOTAL TIME: 38 minutes. CAROLE FONTANA DO DR: MODEST[place] JOB#: [id number] / [id number]
== END 2019-04-17 18:00 | disposition home or self-care (01) | DRG 304 ==
LOC: ER 12:35 → ED HOLD 16:23 → 1 WEST ICU 19:19 → 2 SOUTH 04-16 20:10
PROVIDERS: ADMIT Internal Medicine; ATTEND Internal Medicine
DX: I16.1 Hypertensive emergency (principal); I50.43 Acute on chronic combined systolic (congestive) and diastolic (congestive) heart failure; N17.9 Acute kidney failure, unspecified; I13.0 Hypertensive heart and chronic kidney disease with heart failure and stage 1 through stage 4 chronic kidney disease, or unspecified chronic kidney disease; F12.90 Cannabis use, unspecified, uncomplicated; F41.9 Anxiety disorder, unspecified; F32.9 Major depressive disorder, single episode, unspecified; N18.9 Chronic kidney disease, unspecified; Z82.49 Family history of ischemic heart disease and other diseases of the circulatory system; Z83.3 Family history of diabetes mellitus; Z91.19 Patient's noncompliance with other medical treatment and regimen; Z79.899 Other long term (current) drug therapy
CPT/HCPCS: 36415; 70450; 71046; 80048; 80053; 80061; 80307; 81001; 81025; 83605; 83880; 84484; 85025; 87086; 93005; 93306; 96374; 96375; J0360; J1940; J2405; J3010; J3490; J7050; 99285-25; G0378; J7030

== ENCOUNTER 2020-08-04 11:43 | Emergency (ER) | payer OTHER ==
[~2020-08-04] VITALS: Ht 170.2 cm; Wt 141.3 kg
[~2020-08-04 11:43] MED LIST: AMLO-187 PO; ASPI-630 PO; CLON0.3T PO; DOXA2TAB2 PO; FLUO40CA2 PO; HYDR-2145 PO; LISI-130 PO
--- NOTE | 2020-08-04 12:02 | PHYS DOC ---
Past Medical History Past Medical History: Hypertension Additional Past Medical Histor: ADELAIDA Past Surgical History: No Surgical History Smoking Status: Never Smoker Alcohol Use: None Drug Use: None General Adult EDM: Chief Complaint: KNEE SWELLING HPI: HPI: Patient is a 40 year old female who is obese, presented to ER for evaluation of right knee pain that been going on for a week. Patient denies any injury. Patient had history of arthritis, [id number] on her right knee. Patient says she used to go to her doctor and got a steroid shot in her knee. Review of Systems: Review of Systems: Constitutional: Denies fever or chills. [] Eyes: Denies change in visual acuity. [] HENT: Denies nasal congestion or sore throat. [] Respiratory: Denies cough or shortness of breath. [] Cardiovascular: Denies chest pain or edema. [] GI: Denies abdominal pain, nausea, vomiting, bloody stools or diarrhea. [] : Denies dysuria. [] Musculoskeletal: Positive for right knee pain Integument: Denies rash. [] Neurologic: Denies headache, focal weakness or sensory changes. [] Endocrine: Denies polyuria or polydipsia. [] Lymphatic: Denies swollen glands. [] Psychiatric: Denies depression or anxiety. [] Heart Score: Risk Factors: Risk Factors: DM, Current or recent (<one month) smoker, HTN, HLP, family history of CAD, obesity. Risk Scores: Score 0 - 3: 2.5% MACE over next 6 weeks - Discharge Home Score 4 - 6: 20.3% MACE over next 6 weeks - Admit for Clinical Observation Score 7 - 10: 72.7% MACE over next 6 weeks - Early Invasive Strategies Allergies: Allergies: Allergies Coded Allergies Type Severity Reaction Last Updated Verified No Known Drug Allergies 04/15/19 No Physical Exam: PE: Constitutional: Well developed, well nourished, no acute distress, non-toxic appearance. Obese HENT: Normocephalic, atraumatic, bilateral external ears normal, oropharynx moist, no oral exudates, nose normal. [] Eyes: PERRLA, EOMI, conjunctiva normal, no discharge. [] Neck: Normal range of motion, no tenderness, supple, no stridor. [] Cardiovascular:Heart rate regular rhythm, no murmur [] Lungs & Thorax: Bilateral breath sounds clear to auscultation [] Abdomen: Bowel sounds normal, soft, no tenderness, no masses, no pulsatile masses. [] Skin: Warm, dry, no erythema, no rash. [] Back: No tenderness, no CVA tenderness. [] Extremities: Right knee with full range of motion, nontender to palpation, no swelling, no redness, Neurologic: Alert and oriented X 3, normal motor function, normal sensory func tion, no focal deficits noted. [] Psychologic: Affect normal, judgement normal, mood normal. [] EKG: EKG: [] Radiology/Procedures: Radiology/Procedures: [][facility] [address] [place] [address] IMAGING REPORT Signed PATIENT: FREDDIE THACKER ACCOUNT: [id number] : 1980 LOCATION: ER AGE: 40 SEX: F EXAM STATUS: REG ER ORD. PHYSICIAN: DONALD PARR DO REASON: right knee pain for 1 week PROCEDURE: KNEE RIGHT 3V XR KNEE 3 VIEWS_RT 08/04/2020 12:07 PM INDICATION: Right knee pain for one week COMPARISON: None available. TECHNIQUE: 3 views of the right knee are provided. FINDINGS/ IMPRESSION: 1. There is a small knee joint effusion. 2. There is mild medial femorotibial, lateral femorotibial and patellofemoral joint space narrowing with marginal osteophytosis compatible with mild osteoarthrosis. 3. No acute fracture or dislocation. Bone mineralization is within normal limits. Regional soft tissues are normal. Electronically signed by: Sharmin No MD (08/04/2020 1:03 PM) [id number] DICTATED and SIGNED BY: SHARMIN NO MD DATE: 08/04/20 [id number] Course & Med Decision Making: Course & Med Decision Making Pertinent Labs and Imaging studies reviewed. (See chart for details) [] Dragon Disclaimer: Dragon Disclaimer: This electronic medical record was generated, in whole or in part, using a voice recognition dictation system. Departure Departure Impression: Primary Impression: Osteoarthritis of right knee Disposition: 01 DC HOME SELF CARE/HOMELESS Condition: STABLE Referrals: KAYLYNN GAMBOA DO (PCP) NAHEED BARR MD PLEASE CALL THIS ORTHOPEDIC SURGEON FOR FOLLOW UP ABOUT YOUR KNEE PROBLEM Patient Instructions: Osteoarthritis Additional Instructions: Thank you for visiting our Emergency Department. We appreciate you trusting us with your care. If any additional problems come up don't hesitate to return to visit us. Please follow up with your primary care provider so they can plan additional care if needed and know about the problem that you had. If symptoms worsen come back to the Emergency Department. Any concerning symptoms that start such as chest pain, shortness of air, weakness or numbness on one side of the body, running high fevers or any other concerning symptoms return to the ER. Scripts Naproxen Sodium (ANAPROX DS) 550 Mg Tablet 1 TAB PO BID PRN for PAIN for 15 Days, #30 TAB 0 Refills Prov: DONALD PARR DO 08/04/20 DONALD PARR DO Aug 04, 2020 12:02
--- NOTE | 2020-08-04 13:05 | RAD ---
XR KNEE 3 VIEWS_RT 08/04/2020 12:07 PM INDICATION: Right knee pain for one week COMPARISON: None available. TECHNIQUE: 3 views of the right knee are provided. FINDINGS/ IMPRESSION: 1. There is a small knee joint effusion. 2. There is mild medial femorotibial, lateral femorotibial and patellofemoral joint space narrowing w ith marginal osteophytosis compatible with mild osteoarthrosis. 3. No acute fracture or dislocation. Bone mineralization is within normal limits. Regional soft tissu es are normal. Electronically signed by: Ginny Mcguire MD (08/04/2020 1:03 PM) [id number]
[2020-08-04] MEDS ORDERED: NAPR-682 PO (13:17)
[2020-08-04 13:30] VITALS: BP 149/89
== END 2020-08-04 13:30 | disposition home or self-care (01) ==
LOC: ER 11:43
DX: M17.11 Unilateral primary osteoarthritis, right knee (principal); M25.561 Pain in right knee; I10 Essential (primary) hypertension
CPT/HCPCS: 73562; 99283